=== PATIENT | male | born 1955 | race African-American/Black ===

== ENCOUNTER 2017-05-12 09:19 | Emergency (ER) | payer OTHER ==
[~2017-05-12] VITALS: Ht 175.3 cm; Wt 74.7 kg
[~2017-05-12 09:19] MED LIST: ACETAMINOPHEN-1 EAC1 PO; ALBUTEROL SULF8.5 GM IH; AMLODIPINE BESY10 MG PO; AMLODIPINE PO; AMOX TR-K CLV1 EAC4 PO; ASPIR-LOW81 MG PO; ATROVENT 00.5 MG/2.5 IH; AUGMENTIN875 MG PO; AZITHROMYCIN500 M1 PO; CARVEDILOL PO; CARVEDILOL25 MG PO; CARVEDILOL3.125 MG PO; CARVEDILOL6.25 MG PO; CLARITIN10 M3 PO; CLOPIDOGREL75 MG PO; COREG3.125 M1 PO; COREG6.25 M1 PO; DOCUSATE SODIU100 MG PO; DUONEB 2.5-0.5 M3 ML IH; ERGOCALCIF50000 UNIT PO; GABAPENTIN300 MG PO; GABAPENTIN600 MG PO; GUAIFENESIN200 M2 PO; INHALER; LEVAQUIN500 MG PO; LEVOFLOXACIN750 MG PO; MINITRAN1 EAC3 TD; MIRTAZAPINE; MIRTAZAPINE45 MG PO; MONTELUKAST SOD10 MG PO; MUCINEX600 MG PO; NEURONTIN300 MG PO; NICODERM CQ1 EAC2 TD; NICOTINE PATCH1 EAC2 TD; NITRO-DUR1 EAC3 TD; NITROGLYCERIN; NITROGLYCERIN1 EAC4 TD; NORVASC10 MG PO; NORVASC5 MG PO; OMEPRAZOLE20 MG PO; PRAVASTATIN SOD40 MG PO; PREDNISONE10 M1 PO; PREDNISONE10 MG PO; PREDNISONE20 MG PO; PREDNISONE5 MG PO; PREDNISONE50 MG PO; PRILOSEC20 MG PO; PROVENTIL HFA6.7 GM IH; PROVENTIL,2.5 MG/3 M IH; REMERON45 MG PO; RISPERDAL1 MG PO; RISPERDAL2 MG PO; RISPERIDONE; RISPERIDONE2 MG PO; SERTRALINE HCL100 MG PO; SINGULAIR10 MG PO; SPIRIVA1 INHALATI IH; ST. JOSEPH ASPI81 MG PO; SYMBICORT; SYMBICORT60 INHALAT IH; TRAMADOL HCL50 MG PO; TYLENOL EXTRA500 MG PO; TYLENOL REGULA325 MG PO; TYLENOL WITH C1 EACH PO; ZOCOR40 MG PO; ZOLOFT; ZOLOFT100 MG PO; ZOLOFT50 MG PO
[2017-05-12 10:10] LABS: HEMATOCRIT 53.6 % (38.0-50.0); MCH 31.4 PG (29.0-34.0); MCHC 35.4 G/DL (30.0-36.0); MCV 88.6 FL (86-99); MEAN PLAT.VOLUME 8.8 uM^3 (9.0-12.4); PLATELET COUNT 243 K/uL (156-360); RBC DIS.WIDTH-CV 13.1 % (11.8-14.6); RBC DIS.WIDTH-SD 42.7 % (39-53); RED BLOOD COUNT 6.05 M/uL (4.00-5.50); WHITE BLOOD COUNT 10.4 K/uL (4.1-10.2)
[2017-05-12 10:22] LABS: CHLORIDE 99 mEq/L (99-109); SODIUM 139 mEq/L (136-147)
[2017-05-12 10:23] LABS: GLUCOSE 122 mg/dL (70-99)
[2017-05-12 10:25] LABS: ANION GAP 14 MEQ/L (2-14)
[2017-05-12 10:27] LABS: GFR ESTIMATE (CALCULATED) 53 mL/min/
[2017-05-12 10:28] LABS: UREA NITROGEN (BUN) 15 mg/dL (9-23)
[2017-05-12 10:31] LABS: TROP-I INTERPRETATION NEGATIVE; TROPONIN-I < 0.01 ng/mL (0.0-0.30)
[2017-05-12] MEDS ORDERED: ZITHROMAX250 MG PO (13:06)
[2017-05-12] MEDS ORDERED: PREDNISONE50 MG PO (13:06)
[2017-05-12 13:30] VITALS: BP 101/77
== END 2017-05-12 13:57 | disposition home or self-care (01) ==
LOC: EME → EDBD 09:19 → EME 13:57
PROVIDERS: Emergency Medicine
DX: J44.1 Chronic obstructive pulmonary disease with (acute) exacerbation (principal); R11.0 Nausea; I12.9 Hypertensive chronic kidney disease with stage 1 through stage 4 chronic kidney disease, or unspecified chronic kidney disease; N18.9 Chronic kidney disease, unspecified; Z95.5 Presence of coronary angioplasty implant and graft; Z72.0 Tobacco use
CPT/HCPCS: 71020; 80048; 84484; 85027; 93005; 94640; 99281; 99285; J7512; J7644